=== PATIENT | female | born 1945 | race Caucasian/White ===

== ENCOUNTER → 2016-06-28 | Outpatient (CLI) | payer MEDICARE, OTHER | LOC: SUN.DIA 11:15 | DX: E11.65 Type 2 diabetes mellitus with hyperglycemia (principal); Z79.84 Long term (current) use of oral hypoglycemic drugs; Z68.27 Body mass index [BMI] 27.0-27.9, adult; Z71.3 Dietary counseling and surveillance; E78.5 Hyperlipidemia, unspecified; I10 Essential (primary) hypertension; G47.30 Sleep apnea, unspecified; R20.0 Anesthesia of skin ==

== ENCOUNTER → 2016-12-27 | Outpatient (CLI) | payer MEDICARE, OTHER | LOC: SUN.DIA 11:08 | DX: E11.9 Type 2 diabetes mellitus without complications (principal); E78.5 Hyperlipidemia, unspecified; I10 Essential (primary) hypertension; Z68.26 Body mass index [BMI] 26.0-26.9, adult; Z71.3 Dietary counseling and surveillance ==

== ENCOUNTER → 2017-02-01 | Outpatient (CLI) | payer MEDICARE, OTHER | LOC: MC.RAD 09:59 | DX: Z12.31 Encounter for screening mammogram for malignant neoplasm of breast (principal) ==

== ENCOUNTER 2017-07-07 14:57 | Observation (INO) | payer MEDICARE, OTHER ==
[~2017-07-07] VITALS: Ht 165.1 cm; Wt 70.3 kg
[2017-08-10] MEDS ORDERED: ASPIRIN E.C. 8181 MG PO (10:31)
[2017-08-10] MEDS ORDERED: GLUCOPHAGE XR500 M1 PO (10:31)
[2017-08-10] MEDS ORDERED: AVALIDE 12.5 MG1 TAB PO (10:32)
[2017-08-10] MEDS ORDERED: SYNTHROID0.1 MG/TAB PO (10:32)
[2017-08-10] MEDS ORDERED: ZANTAC 150MG T150 MG PO (10:33)
[2017-08-10] MEDS ORDERED: B-121000 MCG PO (10:33)
[2017-08-10] MEDS ORDERED: VITAMIN D 1001000 IU PO (10:33)
[2017-08-10] MEDS ORDERED: COLACE 100100 MG/CAP PO (10:34)
[2017-08-10] MEDS ORDERED: CALCIUM CARBON650 M2 PO (10:34)
[2017-08-10] MEDS ORDERED: FLONASEALLERGY NS (10:35)
[2017-08-10] MEDS ORDERED: LIPITOR20 MG PO (10:36)
[2017-08-11] VITALS (12 sets, daily range): BP systolic 116–213; BP diastolic 55–91; PULSE 67–91; TEMP 97.5–98.2
[2017-08-12 00:30] VITALS: BP 110/64; PULSE 80; TEMP 98.1
[2017-08-12 04:30] VITALS: BP 110/58; PULSE 70; TEMP 98.4
[2017-08-12 07:00] VITALS: BP 114/57; PULSE 77; TEMP 98.4
[2017-08-12] MEDS ORDERED: PERCOCET 325 MG1 TA2 PO (08:43)
[2017-08-12] MEDS ORDERED: MOTRIN 800800 MG/TAB PO (08:43)
[2017-08-12 11:43] VITALS: BP 107/60; PULSE 74; TEMP 97.8
== END 2017-08-12 15:15 | disposition home or self-care (01) ==
LOC: INPTSU 08-11 05:40 → SDCO 08-11 07:30 → SURG 08-11 07:30 → EDSTATUS 08-11 07:30 → OB 08-11 12:15
DX: N81.3 Complete uterovaginal prolapse (principal); D25.9 Leiomyoma of uterus, unspecified; D27.1 Benign neoplasm of left ovary; N84.0 Polyp of corpus uteri; Z88.6 Allergy status to analgesic agent; Z88.0 Allergy status to penicillin; Z88.2 Allergy status to sulfonamides; I25.10 Atherosclerotic heart disease of native coronary artery without angina pectoris; E11.9 Type 2 diabetes mellitus without complications; Z79.84 Long term (current) use of oral hypoglycemic drugs; E78.5 Hyperlipidemia, unspecified; I10 Essential (primary) hypertension; E03.9 Hypothyroidism, unspecified; M85.80 Other specified disorders of bone density and structure, unspecified site; G47.30 Sleep apnea, unspecified; Z79.82 Long term (current) use of aspirin; Z80.1 Family history of malignant neoplasm of trachea, bronchus and lung; Z80.8 Family history of malignant neoplasm of other organs or systems; Z80.3 Family history of malignant neoplasm of breast
CPT/HCPCS: A4314; C1713; C1781; J0690; J1100; J1815; J1885; J2250; J2405; J2704; J2710; J3010; J7120

== ENCOUNTER → 2017-07-17 | Outpatient (CLI) | payer MEDICARE, OTHER | LOC: SUN.DIA 13:35 | DX: E11.9 Type 2 diabetes mellitus without complications (principal); E78.5 Hyperlipidemia, unspecified; I10 Essential (primary) hypertension; Z68.27 Body mass index [BMI] 27.0-27.9, adult; Z71.3 Dietary counseling and surveillance | CPT/HCPCS: G0108 ==

== ENCOUNTER → 2018-01-09 | Outpatient (CLI) | payer MEDICARE, OTHER ==
[~2018-01-09] MED LIST: ASPIRIN E.C. 8181 MG PO; AVALIDE 12.5 MG1 TAB PO; B-121000 MCG PO; CALCIUM CARBON650 M2 PO; COLACE 100100 MG/CAP PO; FLONASEALLERGY NS; GLUCOPHAGE XR500 M1 PO; LIPITOR20 MG PO; MOTRIN 800800 MG/TAB PO; PERCOCET 325 MG1 TA2 PO; SYNTHROID0.1 MG/TAB PO; VITAMIN D 1001000 IU PO; ZANTAC 150MG T150 MG PO
== END ==
LOC: SUN.DIA 11:00
DX: E11.9 Type 2 diabetes mellitus without complications (principal); E78.5 Hyperlipidemia, unspecified; I10 Essential (primary) hypertension
CPT/HCPCS: G0108

== ENCOUNTER → 2018-03-12 | Outpatient (CLI) | payer MEDICARE, OTHER | LOC: MC.RAD 08:40 | DX: Z12.31 Encounter for screening mammogram for malignant neoplasm of breast (principal) ==

== ENCOUNTER → 2018-10-11 | Outpatient (CLI) | payer MEDICARE, OTHER | LOC: SUN.DIA 09-20 14:29 | DX: E11.9 Type 2 diabetes mellitus without complications (principal); E78.5 Hyperlipidemia, unspecified; I10 Essential (primary) hypertension | CPT/HCPCS: G0108 ==

== ENCOUNTER → 2019-03-25 | Outpatient (CLI) | payer MEDICARE, OTHER | LOC: MC.RAD 13:26 | DX: Z12.31 Encounter for screening mammogram for malignant neoplasm of breast (principal) ==

== ENCOUNTER → 2019-04-09 | Outpatient (CLI) | payer MEDICARE, OTHER | LOC: DIA.ED 10:49 | DX: E11.9 Type 2 diabetes mellitus without complications (principal); E78.5 Hyperlipidemia, unspecified; I10 Essential (primary) hypertension; E66.9 Obesity, unspecified | CPT/HCPCS: G0108 ==

== ENCOUNTER → 2020-03-26 | Outpatient (CLI) | payer MEDICARE, OTHER | LOC: MC.RAD 11:21 | DX: Z12.31 Encounter for screening mammogram for malignant neoplasm of breast (principal); N64.89 Other specified disorders of breast ==

== ENCOUNTER 2020-08-13 16:23 | Emergency (ER) | payer MEDICARE, OTHER ==
[~2020-08-13] VITALS: Ht 162.6 cm; Wt 75.0 kg
[2020-08-13 16:28] VITALS: TEMP 98.1
[2020-08-13 17:11] LABS: BASO # 0.1 (0.0-0.2); BASO % 0.6 % (0.0-2.0); EOS # 0.3 (0.0-0.7); EOS % 2.5 % (0-4.0); GRAN # 8.3 (1.4-6.5); GRAN % 74.9 % (42.2-75.2); HEMOGLOBIN 12.2 g/dl (12.5-16.0); LYMPH # 1.7 (1.2-3.4); LYMPH % 15.3 % (20.0-51.0); MEAN CELL VOLUME 84 fl (80.0-100.0); MEAN CORPUSCULAR HEMOGLOBIN 27 pg (27.0-31.0); MEAN CORPUSCULAR HGB CONC 32 g/dl (33.0-37.0); MEAN PLATELET VOLUME 10.6 fl (7.4-10.4); MONO # 0.7 (0.1-0.6); MONO % 6.4 % (1.7-9.3); PLATELET COUNT 275 K/mm3 (130-400); RED BLOOD COUNT 4.53 M/mm3 (4.10-5.30); REDCELL DISTRIBUTION WIDTH-CV 12.8 % (11.5-14.5)
[2020-08-13 17:24] LABS: ALANINE AMINOTRANSFERASE 48 U/L (4-34); ALBUMIN 4.4 gm/dL (3.5-5.0); ALKALINE PHOSPHATASE 90 U/L (50-136); ANION GAP 9 mmol/L (7-16); AST,SGOT 79 U/L (15-37); BILIRUBIN,TOTAL 0.6 mg/dL (0.0-1.0); BLOOD UREA NITROGEN 18 mg/dL (7-17); CALCIUM 9.9 mg/dL (8.4-10.2); CARBON DIOXIDE 28 mmol/L (22-30); CHLORIDE 100 mmol/L (98-107); CREATININE, serum 0.82 (0.52-1.25); GLUCOSE 162 mg/dL (74-106); LIPASE 127 U/L (23-300); POTASSIUM 3.8 mmol/L (3.4-5.0); SODIUM 138 mmol/L (137-145); TOTAL PROTEIN 6.9 gm/dL (6.4-8.2)
[2020-08-13 17:37] LABS: TROPONIN-I < 0.012 ng/mL (0.000-0.035)
[2020-08-13] MEDS ORDERED: PRIL40 PO (20:37)
[2020-08-13 20:55] VITALS: BP 134/70; PULSE 102
== END 2020-08-13 20:55 | disposition home or self-care (01) ==
LOC: COL.ER 16:23
PROVIDERS: Nurse Practitioner Primary Care
DX: R07.2 Precordial pain (principal); R10.13 Epigastric pain; K21.9 Gastro-esophageal reflux disease without esophagitis; Z95.9 Presence of cardiac and vascular implant and graft, unspecified; E11.9 Type 2 diabetes mellitus without complications; I10 Essential (primary) hypertension; E03.9 Hypothyroidism, unspecified; Z88.0 Allergy status to penicillin; Z88.2 Allergy status to sulfonamides; Z88.6 Allergy status to analgesic agent; Z79.82 Long term (current) use of aspirin; Z79.890 Hormone replacement therapy
CPT/HCPCS: J7030

== ENCOUNTER 2020-09-04 08:03 | Day surgery (SDC) | payer MEDICARE, OTHER ==
[~2020-09-04] VITALS: Ht 165.1 cm; Wt 71.9 kg
[2020-09-04] VITALS (8 sets, daily range): BP systolic 109–135; BP diastolic 50–66; PULSE 67–82; TEMP 97.7–98.7
[~2020-09-04 08:03] MED LIST changes: +PRIL40 PO
[2020-09-04] MEDS ORDERED: VITAMIN C500 MG PO (08:36)
[2020-09-04] MEDS ORDERED: CLARITIN 1010 MG/TAB PO (08:37)
[2020-09-04] MEDS ORDERED: VITAMIN D 400400 IU PO (08:38)
[2020-09-04] MEDS ORDERED: NORCO 325 MG-51 TAB PO (10:10)
--- NOTE | 2020-09-04 10:55 | NUR ---
[place] [facility] [place] SALO GRECO. REPORT GIVEN AT BEDSIDE. PT'S VITALS STABLE. PT'S SPOUSE AT BEDSIDE. PT ALERT AND ORIENTED. ABDOMEN NON-DISTENDED, SOFT. 3 SURGICAL INCISIONS COVERED WITH CLEAN, DRY, INTACT BAND-AIDS. PT DENIES PAIN AND NAUSEA. LIGHTS DIMMED FOR COMFORT, WILL CONTINUE TO MONITOR. CALL LIGHT AT BEDSIDE.
--- NOTE | 2020-09-04 11:00 | NUR ---
PT RESTING IN BED. DENIES COMPLAINTS OF PAIN OR NAUSEA. WATER PROVIDED. PT DENIES FURTHER NEEDS OR COMPLAINTS AT THIS TIME. CALL LIGHT IN REACH.
--- NOTE | 2020-09-04 11:15 | NUR ---
PT RESTING IN BED, SPOUSE AT BEDSIDE. DENIES NEEDS OR COMPLAINTS AT THIS TIME. CALL LIGHT IN REACH.
--- NOTE | 2020-09-04 11:30 | NUR ---
PT RESTING IN BED WITH SPOUSE AT BEDSIDE. PT DENIES NEEDS OR COMPLAINTS. CALL LIGHT IN REACH.
--- NOTE | 2020-09-04 12:00 | NUR ---
PT RESTING IN BED, SPOUSE AT BEDSIDE. PT DENIES PAIN OR NAUSEA. CRACKERS PROVIDED. PT DENIES FURTHER NEEDS OR COMPLAINTS AT THIS TIME. CALL LIGHT IN REACH.
--- NOTE | 2020-09-04 12:15 | NUR ---
PT UP, AMBULATES TO RESTROOM WITH STANDBY ASSIST WITH NO DIFFICULTY. IV SALINE LOCKED. SUGAR FREE JELLO AND DIET SPRITE PROVIDED. PT RETURNS TO BED. CALL LIGHT IN REACH, SPOUSE AT BEDSIDE.
--- NOTE | 2020-09-04 13:02 | NUR ---
PT C/O PAIN RATES 3-4/10. DESCRIBES PAIN "ACHY" IN RIGHT UPPER QUADRANT. REQUESTS PAIN MEDICATION AT THIS TIME. NORCO 5MG/325MG ADMINISTERED PER ORDER. PT UP TO CHANGE OUT OF GOWN INTO CLOTHES. SPOUSE AT BEDSIDE. DENIES FURTHER NEEDS OR COMPLAINTS AT THIS TIME, CALL LIGHT IN REACH.
--- NOTE | 2020-09-04 13:50 | NUR ---
PT DISCHARGED TO PRIVATE VEHICLE VIA WHEEL CHAIR. SPOUSE DRIVING PATIENT HOME. DISCHARGED AT 1350. BELONGINGS SENT WITH PATIENT.
== END 2020-09-04 13:50 | disposition home or self-care (01) ==
LOC: SDCO 08:03
DX: K80.10 Calculus of gallbladder with chronic cholecystitis without obstruction (principal); I10 Essential (primary) hypertension; I25.10 Atherosclerotic heart disease of native coronary artery without angina pectoris; K21.9 Gastro-esophageal reflux disease without esophagitis; E11.9 Type 2 diabetes mellitus without complications; E78.00 Pure hypercholesterolemia, unspecified; E07.9 Disorder of thyroid, unspecified; Z90.710 Acquired absence of both cervix and uterus; Z20.822 Contact with and (suspected) exposure to COVID-19; Z79.899 Other long term (current) drug therapy; Z95.1 Presence of aortocoronary bypass graft; Z88.0 Allergy status to penicillin; Z88.2 Allergy status to sulfonamides; Z79.82 Long term (current) use of aspirin; Z79.890 Hormone replacement therapy; Z79.84 Long term (current) use of oral hypoglycemic drugs; Z80.1 Family history of malignant neoplasm of trachea, bronchus and lung
CPT/HCPCS: J1100; J2405; J2704; J3010; J7030

== ENCOUNTER 2021-04-08 06:31 | Day surgery (SDC) | payer MEDICARE, OTHER ==
[~2021-04-08] VITALS: Ht 165.1 cm; Wt 73.6 kg
[~2021-04-08 06:31] MED LIST changes: +CLARITIN 1010 MG/TAB PO; +NORCO 325 MG-51 TAB PO; +VITAMIN C500 MG PO; +VITAMIN D 400400 IU PO
[2021-04-08 07:19] VITALS: BP 140/77; PULSE 82; TEMP 97.8
[2021-04-08 08:20] VITALS: BP 106/66; PULSE 86; TEMP 97.9
--- NOTE | 2021-04-08 08:32 | NUR ---
PT RETURNED FROM ENDO PROCEDURE ROOM INTO BAY #2. PRESENT ON ARRIVAL. PT ALERT, DROWSY AND ORIENTATED. AMBULATED X2 ASSIST TO CHAIR. VSS. AFEBRILE. REQUESTS VANILLA PUDDING, RIK CRACKERS AND SPRITE. DENIES NAUSEA OR VOMITING AT THIS TIME. WILL CONT TO MONITOR.
[2021-04-08 08:35] VITALS: BP 96/64; PULSE 77
[2021-04-08 08:49] VITALS: BP 114/61; PULSE 75
--- NOTE | 2021-04-08 08:50 | NUR ---
PT TOLERATING FOOD AND FLUIDS WITHOUT C/O NAUSEA OR VOMITING. DISCONNECTED FLUIDS. TALKING WITH , DILIP.
--- NOTE | 2021-04-08 08:51 | NUR ---
PT DENIES C/O'S OF PAIN OR NAUSEA, CONTINUES TO EAT ON RIK CRACKERS AND SIP ON SPRITE. WILL CONT TO MONITOR.
[2021-04-08 09:05] VITALS: BP 111/55; PULSE 74
--- NOTE | 2021-04-08 09:53 | NUR ---
PT TOLERATING FOOD AND FLUIDS, IV TO LEFT HAND WAS REMOVED, PT TOLERATED WELL. DISMISSAL INSTRUCTIONS WERE SIGNED, DENIES QUESTIONS. PT WAS TAKEN TO PT ENTRANCE PER WC, WAS DRIVING FAMILY VEHICLE.
== END 2021-04-08 09:51 | disposition home or self-care (01) ==
LOC: SDCO 06:31
DX: Z12.11 Encounter for screening for malignant neoplasm of colon (principal); K57.30 Diverticulosis of large intestine without perforation or abscess without bleeding; I10 Essential (primary) hypertension; I25.10 Atherosclerotic heart disease of native coronary artery without angina pectoris; G43.909 Migraine, unspecified, not intractable, without status migrainosus; E78.5 Hyperlipidemia, unspecified; G47.33 Obstructive sleep apnea (adult) (pediatric); K21.9 Gastro-esophageal reflux disease without esophagitis; E11.9 Type 2 diabetes mellitus without complications; E03.9 Hypothyroidism, unspecified; Z79.82 Long term (current) use of aspirin; Z99.89 Dependence on other enabling machines and devices; Z79.890 Hormone replacement therapy; Z79.84 Long term (current) use of oral hypoglycemic drugs; Z20.822 Contact with and (suspected) exposure to COVID-19; Z79.899 Other long term (current) drug therapy
CPT/HCPCS: J2704; J3010; J7120

== ENCOUNTER → 2021-04-20 | Outpatient (CLI) | payer MEDICARE, OTHER | LOC: MC.RAD 10:56 | DX: Z12.31 Encounter for screening mammogram for malignant neoplasm of breast (principal) ==

== ENCOUNTER 2023-07-25 07:22 | Day surgery (SDC) | payer MEDICARE ==
[~2023-07-25] VITALS: Ht 165.1 cm; Wt 74.0 kg
[2023-07-25] VITALS (7 sets, daily range): BP systolic 99–131; BP diastolic 56–70; PULSE 66–79; TEMP 97–97.7
[~2023-07-25 07:22] MED LIST changes: +LR 1,000 ML IV SCH; +Ondansetron 4 MG/2 ML VIAL IV PRN
[2023-07-25] MEDS ORDERED: VITAMIN B12 781 TAB PO (08:06)
[2023-07-25] MEDS ORDERED: COLACE 100100 MG/CAP PO (08:07)
--- NOTE | 2023-07-25 09:25 | NUR ---
PATIENT AMBULATED TO CHAIR WITH STEADY GAIT, ASSIST OF 2. ALERT AND AWAKE. DENIES PAIN, NAUSEA AND SHORTNESS OF BREATH. BREATHING REGULAR AND UNLABORED ON ROOM AIR. SKIN WARM AND DRY. IV IN PLACE. NURSE HANDOFF COMPLETED IN ROOM. SEE CHART FOR VITAL SIGNS. PATIENT HAD CRANBERRY JUICE AND CHOCOLATE PUDDING. BOTH FOOD AND DRINK TOLERATED WELL. NO DYSPHAGIA. CALL LIGHT IN REACH. SPOUSE, JOELLE, PRESENT IN ROOM.
--- NOTE | 2023-07-25 10:38 | NUR ---
0942: MET WITH PATIENT AND JOELLE TO DISCUSS PROCEDURE. 1030:DISCHARGE TEACHING COMPLETED WITH PRINTED EDUCATION AND INSTRUCTIONS SENT HOME WITH PATIENT. PATIENT VERBALIZED UNDERSTANDING OF TEACHING. 1035: IV REMOVED. GAUZE AND COBAN PLACED OVER SITE. 1038: PATIENT DISCHARGED HOME WITH JOELLE TRANSPORT.
== END 2023-07-25 10:38 | disposition home or self-care (01) ==
LOC: SDCO 07:22
DX: K29.50 Unspecified chronic gastritis without bleeding (principal); K29.80 Duodenitis without bleeding; K31.7 Polyp of stomach and duodenum; K31.89 Other diseases of stomach and duodenum; D50.9 Iron deficiency anemia, unspecified; K44.9 Diaphragmatic hernia without obstruction or gangrene; K22.9 Disease of esophagus, unspecified; Z79.899 Other long term (current) drug therapy; I10 Essential (primary) hypertension; G47.33 Obstructive sleep apnea (adult) (pediatric)
CPT/HCPCS: J2704; J7120